=== PATIENT | female | born 1990 | race Caucasian/White ===

== ENCOUNTER 2023-01-04 13:31 | Outpatient (CLI) | payer BC | END 2023-01-04 13:32 | disposition home or self-care (01) | LOC: RAD-FRANK 13:31 | PROVIDERS: ATTEND Nurse Practitioner Family | DX: S99.912A Unspecified injury of left ankle, initial encounter (principal) ==

== ENCOUNTER 2024-03-01 14:32 | Outpatient (CLI) | payer BC | END 2024-03-01 14:33 | disposition home or self-care (01) | LOC: BICULT 14:32 | PROVIDERS: ATTEND Nurse Practitioner Family | DX: S30.1XXA Contusion of abdominal wall, initial encounter (principal); R19.00 Intra-abdominal and pelvic swelling, mass and lump, unspecified site | CPT/HCPCS: 76999 ==